=== PATIENT | male | born 1950 | race American Indian/Alaskan Native ===

== ENCOUNTER 2018-12-24 10:51 | Emergency (ER) | payer MEDICARE ==
[2018-12-24 11:04] VITALS: BP 120/82
[2018-12-24] MEDS ORDERED: PEPCID IV ONE (11:12)
[2018-12-24] MEDS ORDERED: SOLU-Medrol IV ONE (11:12)
--- NOTE | 2018-12-24 11:12 | Emergency Department Report ---
HPI - General Chief Complaint: Allergic Reaction Time Seen by Provider: 12/24/18 11:11 - HPI HPI: Patient is a 68-year-old black male with past medical history hypertension who also week ago was taken off lisinopril because swelling to his lips. Patient is not been taking this medication last night started having swelling returned. It is now swollen and his tongue as well. Has no difficulty swallowing or difficulty breathing. Patient gave himself a epi shot before arrival ED Past Medical Hx - Past Medical History Hx Hypertension: Yes Hx Heart Attack/AMI: Yes Hx Congestive Heart Failure: Yes Additional medical history: decreased hearing, elevated cholesterol,gout - Surgical History Hx Coronary Stent: Yes (x4) - Social History Smoking Status: Never Smoker Substance Use Type: None - Medications Home Medications: Home Medications Medication Instructions Recorded Confirmed Last Taken Type diphenhydrAMINE [Benadryl CAP] 25 mg PO Q6HR #12 capsule 12/24/18 Unknown Rx predniSONE [Deltasone] 10 mg PO .TAPER #21 tab 12/24/18 Unknown Rx ED Review of Systems ROS: Stated complaint: ALLERGIC REACTION/TONGUE SWELLING Other details as noted in HPI Constitutional: denies: chills, fever Eyes: denies: eye pain, eye discharge, vision change ENT: denies: ear pain, throat pain Respiratory: denies: cough, shortness of breath, wheezing Cardiovascular: denies: chest pain, palpitations Endocrine: no symptoms reported Gastrointestinal: denies: abdominal pain, nausea, diarrhea Genitourinary: denies: urgency, dysuria Musculoskeletal: denies: back pain, joint swelling, arthralgia Skin: denies: rash, lesions Neurological: denies: headache, weakness, paresthesias Psychiatric: denies: anxiety, depression Hematological/Lymphatic: denies: easy bleeding, easy bruising Physical Exam - Physical Exam Vital Signs: Vital Signs 12/24/18 10:58 Temperature 97.9 F Pulse Rate 52 L Respiratory 18 Rate Blood Pressure 120/82 O2 Sat by Pulse 98 Oximetry General: Patient is alert and oriented 3 in no acute distress. Lungs clear to auscultation his heart tones are within normal limits. His abdomen is soft nontender. Skin exam is no rashes or hives present. HEENT is oropharynx is clear and able to be visualized. Patient has some right upper lip edema and some right sided tongue swelling distally. ED Course Vital Signs 12/24/18 10:58 Temperature 97.9 F Pulse Rate 52 L Respiratory 18 Rate Blood Pressure 120/82 O2 Sat by Pulse 98 Oximetry ED Medical Decision Making - Medical Decision Making Patient was monitored here in the emergency department. Given a dose of Solu- Medrol. Patient's had no further progression of his angioedema. Tongue swelling, does look as though it is starting to improve. Patient be discharged home. Critical care attestation.: If time is entered above; I have spent that time in minutes in the direct care of this critically ill patient, excluding procedure time. ED Disposition Clinical Impression: Angioedema Qualifiers: Encounter type: initial encounter Qualified Code(s): T78.3XXA - Angioneurotic edema, initial encounter Disposition: DC-01 TO HOME OR SELFCARE Is pt being admited?: No Does the pt Need Aspirin: No Condition: Stable Instructions: Angioedema (ED) Time of Disposition: 12:41
== END 2018-12-24 13:03 | disposition home or self-care (01) ==
LOC: ED 10:51
DX: T78.3XXA Angioneurotic edema, initial encounter (principal); I11.0 Hypertensive heart disease with heart failure; I50.9 Heart failure, unspecified; I25.2 Old myocardial infarction; E78.00 Pure hypercholesterolemia, unspecified; Z95.1 Presence of aortocoronary bypass graft; Z79.899 Other long term (current) drug therapy; Z88.8 Allergy status to other drugs, medicaments and biological substances
CPT/HCPCS: 96374; 96375; 99282; J2930